=== PATIENT | female | born 1975 | race Caucasian/White ===

== ENCOUNTER 2019-11-06 13:04 | Emergency (ER) | payer OTHER, SELFPAY ==
[2019-11-06 13:14] VITALS: BP 184/98; PULSE 83; RESP 20; TEMP 37.3; O2SAT 95
--- NOTE | 2019-11-06 13:21 | ED.LOWEXIN ---
HPI - Extremity Injury (Lower) General Chief Complaint: Extremity Injury, Lower Stated Complaint: right great toe Time Seen by Provider: 11/06/19 13:22 Source: patient and RN notes reviewed Mode of arrival: ambulatory Limitations: no limitations History of Present Illness HPI Narrative: 43-year-old female presents with concern for injury to the toenail of the first digit of the right foot. She reports yesterday she caught her toenail on the brake pedal in her car. Reports since then she has cleaned it several times with soap and water, hydrogen peroxide, applied antibiotic ointment and bandaged it. Reports she is not up-to-date on her tetanus shot. Denies any musculoskeletal pain. MD complaint: other (Toenail injury) Related Data Allergies Allergy/AdvReac Type Severity Reaction Status Date / Time tramadol Allergy Itching Verified 11/06/19 13:29 Review of Systems Review of Systems: Narrative: CONSTITUTIONAL: Denies malaise, chills, sweats, or fever. SKIN: Reports right first toenail injury MUSCULOSKELETAL: Denies musculoskeletal pain, decreased range of motion NEUROLOGIC: Denies numbness, weakness All systems reviewed & are unremarkable except as noted in HPI and below PMFSH Comments At time of signature, agree with nursing past medical, surgical, social and family history. There is no relevant family history pertinent to the presenting complaint Exam Narrative: Exam Narrative: GENERAL: Well-appearing, well-nourished, and in no acute distress. HEAD: Normocephalic EYES: PERRLA, conjunctivae clear ENT: Mucous membranes moist. NECK: Supple. CHEST: No respiratory distress. Speaks in full sentences. HEART: Normal right lower peripheral pulse. EXTREMITIES: First digit of right foot has normal range of motion, no edema, normal strength and sensation, no edema, no ecchymosis SKIN: Warm, dry, no rash. Disruption and toenail noted to first digit of right foot, toenail still intact with mild ecchymosis under the nail bed. NEURO: Alert and oriented x3. PSYCH: Normal mood and affect Course Course Emergency Course: Patient is aware of diagnosis, understands and agrees to treatment plan. Anticipatory guidance given. Patient agrees to follow-up as directed and is aware of reasons to seek care at the emergency department. Portions of this record may have been created with voice recognition software Vital Signs Vital signs: Vital Signs Temperature 99.2 F 11/06/19 13:14 Pulse Rate 83 11/06/19 13:14 Respiratory Rate 20 11/06/19 13:14 Blood Pressure 184/98 H 11/06/19 13:14 Pulse Oximetry 95 11/06/19 13:14 Temperature 99.2 F 11/06/19 13:14 Pulse Rate 83 11/06/19 13:14 Respiratory Rate 20 11/06/19 13:14 Blood Pressure 184/98 H 11/06/19 13:14 Pulse Oximetry 95 11/06/19 13:14 Reviewed. Patient has history of hypertension MDM - Extremity Injury (Lower) MDM Narrative Medical decision making narrative: Exam findings show no acute concerns or changes; patient is non-toxic appearing and is in no distress. Patient is appropriate for outpatient treatment and follow-up. Critical Care Time Critical Care Time Critical Care Time: No Discharge Plan Discharge Clinical Impression: Injury of toenail of right foot Qualifiers: Encounter type: initial encounter Qualified Code(s): S99.921A - Unspecified injury of right foot, initial encounter Patient Disposition: Home, Self-Care Condition: Stable Instructions: Laceration (ED) Additional Instructions: Continue to clean your toenail twice daily with soap and water, apply antibiotic ointment twice daily. Cover toenail with bandage. As the toenail grows out, clipped off excess toenail, keep covered to avoid the toenail snagging on shoes and socks. Take Tylenol for pain. Your blood pressure was elevated above 120/80 today at [facility]. This puts you above the threshold for follow up. Please schedule a follow up visit with your personal physician as s
[2019-11-06] MEDS: TETANUS,DIPHTHERIA,AC PERTUSSIS ADULT (0.5 ML) BOOSTRIX IM (13:39)
[2019-11-06 13:55] VITALS: BP 160/91
== END 2019-11-06 13:56 | disposition home or self-care (01) ==
PROVIDERS: Emergency Provider Nurse Practitioner
DX: S99.921A Unspecified injury of right foot, initial encounter (principal); X58.XXXA Exposure to other specified factors, initial encounter; Z23 Encounter for immunization; I10 Essential (primary) hypertension; J45.909 Unspecified asthma, uncomplicated; E11.9 Type 2 diabetes mellitus without complications; F32.9 Major depressive disorder, single episode, unspecified
CPT/HCPCS: 90471; 90715; 99212; G0463

== ENCOUNTER 2020-04-28 11:19 | Emergency (ER) | payer OTHER, SELFPAY ==
[2020-04-28 11:25] VITALS: BP 155/100; PULSE 80; RESP 20; TEMP 36.8; O2SAT 99
[2020-04-28 11:32] VITALS: BP 155/100; PULSE 80; RESP 20; TEMP 36.8; O2SAT 99
--- NOTE | 2020-04-28 11:47 | ED.GENADULT ---
HPI - General Adult General Chief complaint: Fall Stated complaint: SLIPPED ON ICE/NECK PAIN/GROIN PAIN Source: patient Mode of arrival: ambulatory Limitations: no limitations History of Present Illness HPI narrative: Patient presents for evaluation of pain in the neck, back, left groin after slipping yesterday. She indicates she was stepping up onto a curb at [facility] and she slipped. She did not sustain a fall. She did not experience any blunt trauma. She states that pain in her back is between both of her shoulders and radiating into her neck and had. She rates her headache, neck pain and back pain is 6 out of 10 in severity. She also reports some pain in her left groin that she rates as 4 out of 10 in severity. She has chronic low back pain for which she takes OxyContin 50 mg twice daily and Percocet 7.5/325 quantity 120/month. She states that she knows nothing is broken . She has not taken any medication other than her prescribed medication and some Excedrin since the event yesterday. She is simply requesting an injection of Toradol. Related Data Home Medications Medication Instructions Recorded Confirmed albuterol sulfate 04/28/20 bupropion HCl mg PO 04/28/20 diazepam 04/28/20 duloxetine mg PO 04/28/20 ergocalciferol (vitamin D2) 04/28/20 [Vitamin D2] fluticasone propion-salmeterol INHALATION 04/28/20 [Wixela Inhub] furosemide 04/28/20 glycopyrrolate-formoterol [Bevespi INHALATION 04/28/20 Aerosphere] hydrochlorothiazide 04/28/20 levothyroxine 04/28/20 liraglutide [Victoza 2-Boyd] mg SUBCUT 04/28/20 metformin mg 04/28/20 montelukast mg 04/28/20 nadolol 04/28/20 oxycodone mg PO 04/28/20 oxycodone mg PO 04/28/20 oxycodone [OxyContin] mg PO 04/28/20 oxycodone-acetaminophen 04/28/20 pramipexole mg 04/28/20 topiramate 04/28/20 Allergies Allergy/AdvReac Type Severity Reaction Status Date / Time tramadol Allergy Itching Verified 11/06/19 13:29 Review of Systems Review of Systems: Narrative: CONSTITUTIONAL: Denies fever, chills, or sweats. EYES: Denies visual changes, redness, or discharge. ENT: Denies rhinorrhea, congestion, sore throat, or otalgia. CARDIOVASCULAR: Denies chest pain, palpitations, or edema. RESPIRATORY: Denies cough or dyspnea. GASTROINTESTINAL: Denies abdominal pain, nausea, vomiting, or diarrhea. GENITOURINARY: Denies dysuria or hematuria. SKIN: Denies rash or itching. MUSCULOSKELETAL: Reports back pain and pain in the left groin. NEUROLOGIC: Denies headache, numbness, dizziness, or weakness. PSYCHIATRIC: Denies anxiety or depression. [facility], [facility] Past Medical History Medical History (Updated 04/28/20 @ 11:56 by Derek Cross [facility], ) Chronic low back pain Diabetes mellitus type 2 in obese Hypertension Thyroid disorder Surgical History Surgical History H/O tubal ligation Family History Family History Father Diabetes mellitus Mother Hypertension Social History Social History Smoking packs per day: 1 Smoking cigarettes per day: 20.0 Smoking status: Current every day smoker Alcohol intake: never Substance use: never Living arrangements: with family Gender identity (if verbalized by the patient): Female Sexual Orientation (if Verbalized by the Patient): Straight or Heterosexual Spiritual care concerns: No Exam Narrative: Exam Narrative: GENERAL: Obese, well-appearing, well-nourished, and in no acute distress. HEAD: Normocephalic, atraumatic. EYES: PERRLA and EOMI. ENT: Nares clear, no rhinorrhea or epistaxis. Mucous membranes moist. Oropharynx without tonsillar hypertrophy exudate or other lesions. Bilateral TMs pearly khan nonbulging NECK: Supple. No adenopathy or masses. No carotid bruits or JVD CHEST: Clear to auscultation. No resp
[2020-04-28] MEDS: KETOROLAC (*BKC) 60 MG/2 ML VIAL IM (11:48)
== END 2020-04-28 12:16 | disposition home or self-care (01) ==
PROVIDERS: Emergency Provider Nurse Practitioner
DX: S39.011A Strain of muscle, fascia and tendon of abdomen, initial encounter (principal); W00.0XXA Fall on same level due to ice and snow, initial encounter; S39.012A Strain of muscle, fascia and tendon of lower back, initial encounter; F17.210 Nicotine dependence, cigarettes, uncomplicated; E11.9 Type 2 diabetes mellitus without complications; I10 Essential (primary) hypertension
CPT/HCPCS: 96372; 99213; G0463; J1885